=== PATIENT | male | born 1995 | race Caucasian/White ===

== ENCOUNTER 2018-07-06 16:40 | Emergency (ER) | payer OTHER, BC ==
[2018-07-06] MEDS: IBUPROFEN 800 MG TAB PO (19:11)
[2018-07-06] MEDS: BENZONATATE 100 MG CAP PO (19:11)
== END 2018-07-06 19:26 | disposition home or self-care (01) ==
LOC: M ED 16:40
DX: J18.1 Lobar pneumonia, unspecified organism (principal); J06.9 Acute upper respiratory infection, unspecified; J45.909 Unspecified asthma, uncomplicated; Z72.0 Tobacco use; Z91.010 Allergy to peanuts
CPT/HCPCS: 71046

== ENCOUNTER 2018-11-16 08:18 | Emergency (ER) | payer OTHER ==
[~2018-11-16] VITALS: Ht 193 cm; Wt 120.5 kg
[~2018-11-16 08:18] MED LIST: ALBU17IN2 INH; TESS100C PO; VENTAER INH; ZITHTAB PO
[2018-11-16] MEDS ORDERED: CYCL10TA PO (08:49)
[2018-11-16] MEDS ORDERED: NAPR-50 PO (08:49)
[2018-11-16 09:02] VITALS: BP 122/84
== END 2018-11-16 09:06 | disposition home or self-care (01) ==
LOC: M ED 08:18
DX: M62.830 Muscle spasm of back (principal); Z87.891 Personal history of nicotine dependence; Z91.010 Allergy to peanuts

== ENCOUNTER 2019-06-08 17:35 | Emergency (ER) | payer OTHER, SELFPAY ==
[~2019-06-08] VITALS: Ht 193 cm; Wt 135.0 kg
[~2019-06-08 17:35] MED LIST changes: -ALBU17IN2 INH; +CYCL10TA PO; +NAPR-837 PO; +PROV108A INH
[2019-06-08 19:16] LABS: BASO % 0.5 % (0.0-1.0); EOS # 0.2 10^3/uL (0.0-0.5); EOS % 2.9 % (0.0-3.0); HEMATOCRIT 41.5 % (42.0-52.0); HEMOGLOBIN 14.9 g/dl (13.5-17.5); LYMPH # 1.7 10^3/uL (1.5-5.0); LYMPH % 22.5 % (24.0-44.0); MEAN CORPUSCULAR HGB CONC 35.9 g/dl (32.0-36.5); MEAN CORPUSCULAR VOLUME 83.5 fl (80.0-96.0); MONO # 0.4 10^3/uL (0.0-0.8); MONO % 5.5 % (0.0-5.0); NEUTROPHILS # 5.2 10^3/uL (1.5-8.5); NEUTROPHILS % 68.2 % (36.0-66.0); PLATELET COUNT, AUTOMATED 366 10^3/uL (150-450); RED BLOOD COUNT 4.97 10^6/uL (4.30-6.10); WHITE BLOOD COUNT 7.7 10^3/uL (4.0-10.0)
[2019-06-08 19:26] LABS: ALBUMIN 4.4 GM/DL (3.2-5.2); ALT/SGPT 77 U/L (12-78); BILIRUBIN,DIRECT 0.3 MG/DL (0.0-0.2); BILIRUBIN,TOTAL 1.5 MG/DL (0.2-1.0); BLOOD UREA NITROGEN 16 MG/DL (7-18); CALCIUM LEVEL 9.4 MG/DL (8.5-10.1); CARBON DIOXIDE LEVEL 24 MEQ/L (21-32); CHLORIDE LEVEL 107 MEQ/L (98-107); CREATININE FOR GFR 1.05 MG/DL (0.70-1.30); GLOMERULAR FILTRATION RATE > 60.0 (>60); GLUCOSE, FASTING 86 MG/DL (70-100); LIPASE 56 U/L (73-393); SODIUM LEVEL 139 MEQ/L (136-145); TOTAL PROTEIN 7.7 GM/DL (6.4-8.2)
[2019-06-08] MEDS ORDERED: IBUPROFEN 600 MG TAB PO ONE (20:00)
--- NOTE | 2019-06-08 21:13 | REPVR ---
EXAM: US Pelvis Limited, Male EXAM DATE/TIME: 06/08/2019 9:03 PM CLINICAL HISTORY: 23 years old, male; Hip pain; Right hip; Additional info: R lump in inguinal area, tender, pain TECHNIQUE: Imaging protocol: Real-time pelvic ultrasound with image documentation. COMPARISON: No relevant prior studies available. FINDINGS: Soft tissues: No evidence of hernia. Lymph nodes: Examination of the right inguinal region demonstrates prominent lymph nodes corresponding to the palpable abnormality measuring 2.6 x 1.1 x 1 cm and 1.7 x 1.1 x 1.5 cm. Both demonstrate an oval shape with fatty nazia consistent with benignity. IMPRESSION: Benign appearing prominent inguinal lymph nodes likely postinflammatory. Otherwise unremarkable. Electronically signed by: Josesito Jimenez On 06/08/2019 21:13:30 PM
[2019-06-08 21:20] VITALS: BP 132/82
== END 2019-06-08 21:32 | disposition home or self-care (01) ==
LOC: M ED 17:35
DX: R59.0 Localized enlarged lymph nodes (principal); Z91.010 Allergy to peanuts

== ENCOUNTER 2020-03-15 15:54 | Emergency (ER) | payer OTHER, SELFPAY ==
[~2020-03-15] VITALS: Ht 193 cm; Wt 137.9 kg
[~2020-03-15 15:54] MED LIST changes: +CYCL-707 PO; -CYCL10TA PO
[2020-03-15 17:30] VITALS: BP 140/80
== END 2020-03-15 17:50 | disposition home or self-care (01) ==
LOC: M ED 15:54
DX: F43.0 Acute stress reaction (principal); Z91.010 Allergy to peanuts

== ENCOUNTER → 2020-03-31 | Outpatient (REF) | payer OTHER, MEDICAID ==
[2020-03-31 19:19] LABS: BASO % 0.5 % (0.0-1.0); EOS # 0.2 10^3/uL (0.0-0.5); EOS % 3.4 % (0.0-3.0); HEMOGLOBIN 13.5 g/dl (13.5-17.5); LYMPH # 1.7 10^3/uL (1.5-5.0); LYMPH % 29.3 % (24.0-44.0); MEAN CORPUSCULAR HEMOGLOBIN 29.7 pg (27.0-33.0); MEAN CORPUSCULAR HGB CONC 34.6 g/dl (32.0-36.5); MEAN CORPUSCULAR VOLUME 85.7 fl (80.0-96.0); MONO # 0.3 10^3/uL (0.0-0.8); MONO % 5.7 % (0.0-5.0); NEUTROPHILS # 3.5 10^3/uL (1.5-8.5); NEUTROPHILS % 60.2 % (36.0-66.0); PLATELET COUNT, AUTOMATED 391 10^3/uL (150-450); RED BLOOD COUNT 4.55 10^6/uL (4.30-6.10); WHITE BLOOD COUNT 5.8 10^3/uL (4.0-10.0)
[2020-03-31 19:31] LABS: ALT/SGPT 80 U/L (12-78); BILIRUBIN,TOTAL 0.9 MG/DL (0.2-1.0); BLOOD UREA NITROGEN 11 MG/DL (7-18); CALCIUM LEVEL 9.3 MG/DL (8.5-10.1); CARBON DIOXIDE LEVEL 24 MEQ/L (21-32); CHLORIDE LEVEL 107 MEQ/L (98-107); CHOLESTEROL LEVEL 178 MG/DL (<200); CREATININE FOR GFR 1.24 MG/DL (0.70-1.30); FREE T4 1.02 NG/DL (0.76-1.46); GLOMERULAR FILTRATION RATE > 60.0 (>60); GLUCOSE, FASTING 97 MG/DL (70-100); HDL CHOLESTEROL 25 MG/DL (>40); LDL CHOLESTEROL 121 MG/DL (<100); NON-HDL-C 153 MG/DL; POTASSIUM SERUM 3.9 MEQ/L (3.5-5.1); SODIUM LEVEL 138 MEQ/L (136-145); TOTAL 25(OH) VITAMIN D 21.3 NG/ML (30.0-100.0); TOTAL PROTEIN 7.6 GM/DL (6.4-8.2); TRIGLYCERIDES LEVEL 162 MG/DL (<150)
[2020-03-31 19:33] LABS: HEMOGLOBIN A1c 4.5 %
== END ==
LOC: M LAB REF 16:51
PROVIDERS: ATTEND Nurse Practitioner Family
DX: G47.00 Insomnia, unspecified (principal); Z13.9 Encounter for screening, unspecified; F41.8 Other specified anxiety disorders; J45.909 Unspecified asthma, uncomplicated

== ENCOUNTER 2020-05-15 10:47 | Emergency (ER) | payer OTHER, MEDICAID | END 2020-05-15 14:24 | disposition home or self-care (01) | LOC: M ED 10:47 | DX: Z11.59 Encounter for screening for other viral diseases (principal); J45.909 Unspecified asthma, uncomplicated ==

== ENCOUNTER 2020-07-16 10:34 | Emergency (ER) | payer MEDICAID, OTHER ==
[~2020-07-16] VITALS: Ht 193 cm; Wt 139.3 kg
[2020-07-16] MEDS ORDERED: HYDR50TA70 (10:43)
[2020-07-16] MEDS ORDERED: IBUPROFEN 800 MG TAB PO ONE (11:30)
[2020-07-16] MEDS ORDERED: CYCLOBENZAPRINE 10MG TABLET PO ONE (11:30)
[2020-07-16] MEDS ORDERED: LIDOCAINE 5% (LIDODERM) PATCH TD ONE (11:30)
--- NOTE | 2020-07-16 12:29 | REPVR ---
PROCEDURE INFORMATION: Exam: XR Lumbosacral Spine, 2 or 3 Views Exam date and time: 07/16/2020 11:30 AM Age: 24 years old Clinical indication: Low back pain TECHNIQUE: Imaging protocol: XR of the lumbosacral spine, 2 or 3 views. COMPARISON: No relevant prior studies available. FINDINGS: Vertebrae: Vertebral body heights are intact. Alignment is maintained. The pedicles appear intact. No acute fracture is identified. The disc spaces appear grossly unremarkable. Soft tissues: Grossly unremarkable. IMPRESSION: No significant abnormality. Electronically signed by: Pantera Berg On 07/16/2020 12:28:53 PM
--- NOTE | 2020-07-16 12:29 | REPVR ---
PROCEDURE INFORMATION: Exam: XR Thoracic Spine, 3 Views Exam date and time: 07/16/2020 11:30 AM Age: 24 years old Clinical indication: Pain in thoracic spine; Additional info: Back pain TECHNIQUE: Imaging protocol: XR of the thoracic spine, 3 views. COMPARISON: No relevant prior studies available. FINDINGS: Vertebrae: Vertebral body heights are intact. Alignment is maintained. The pedicles appear intact. No acute fracture is identified. The disc spaces appear grossly unremarkable. Soft tissues: Grossly unremarkable. IMPRESSION: No significant abnormality. Electronically signed by: Pantera Berg On 07/16/2020 12:29:24 PM
[2020-07-16] MEDS ORDERED: LIDO5DIS41 TD (12:43)
[2020-07-16] MEDS ORDERED: CYCL-707 PO (12:43)
[2020-07-16 12:54] VITALS: BP 140/86
[2020-07-16] MEDS ORDERED: **NOTE PATIENT COMMENT** MISC XX SCH (21:00)
== END 2020-07-16 13:00 | disposition home or self-care (01) ==
LOC: M ED 10:34
DX: S39.012A Strain of muscle, fascia and tendon of lower back, initial encounter (principal); X50.0XXA Overexertion from strenuous movement or load, initial encounter; Y92.89 Other specified places as the place of occurrence of the external cause; Y93.9 Activity, unspecified; Y99.0 Civilian activity done for income or pay; F41.9 Anxiety disorder, unspecified; F32.9 Major depressive disorder, single episode, unspecified; F17.200 Nicotine dependence, unspecified, uncomplicated; Z91.010 Allergy to peanuts

== ENCOUNTER 2020-10-29 12:22 | Emergency (ER) | payer OTHER ==
[~2020-10-29] VITALS: Ht 193 cm; Wt 143.0 kg
[~2020-10-29 12:22] MED LIST changes: +HYDR50TA70; +LIDO5DIS41 TD
[2020-10-29] MEDS ORDERED: ACETAMINOPHEN 325 MG TAB PO ONE (13:30)
[2020-10-29] MEDS ORDERED: AMOX875T PO (13:41)
[2020-10-29 13:54] VITALS: BP 141/87
== END 2020-10-29 13:55 | disposition home or self-care (01) ==
LOC: M ED 12:22
DX: K04.7 Periapical abscess without sinus (principal); K02.9 Dental caries, unspecified; K05.00 Acute gingivitis, plaque induced; Z91.010 Allergy to peanuts

== ENCOUNTER 2021-06-02 22:38 | Emergency (ER) | payer OTHER ==
[~2021-06-02] VITALS: Ht 193 cm; Wt 140.3 kg
[~2021-06-02 22:38] MED LIST changes: +AMOX875T PO
[2021-06-03] MEDS ORDERED: BENZOCAINE 20% GEL 9GM TUBE (ANBESOL MAX STRENGTH) TOP ONE (00:25)
[2021-06-03] MEDS ORDERED: LIDOCAINE 2% W/ EPINEPHRINE 1.7 ML DENTAL INJ SM ONE (00:25)
[2021-06-03 01:21] VITALS: BP 135/86
== END 2021-06-03 01:23 | disposition home or self-care (01) ==
LOC: M ED 22:38
DX: K08.89 Other specified disorders of teeth and supporting structures (principal); J45.909 Unspecified asthma, uncomplicated; F41.9 Anxiety disorder, unspecified; Z91.010 Allergy to peanuts

== ENCOUNTER → 2022-11-05 | Outpatient (REF) | payer OTHER ==
[~2022-11-05] MED LIST changes: +ALBU6.7H6 INH; -PROV108A INH
[2022-11-05 13:54] LABS: BASO % 0.5 % (0.0-1.0); EOS # 0.4 10^3/uL (0.0-0.5); EOS % 5.8 % (0.0-3.0); HEMATOCRIT 41.9 % (42.0-52.0); HEMOGLOBIN 14.1 g/dl (13.5-17.5); LYMPH # 1.7 10^3/uL (1.5-5.0); LYMPH % 25.5 % (24.0-44.0); MEAN CORPUSCULAR HEMOGLOBIN 29.6 pg (27.0-33.0); MEAN CORPUSCULAR HGB CONC 33.7 g/dl (32.0-36.5); MEAN CORPUSCULAR VOLUME 87.8 fl (80.0-96.0); MONO # 0.4 10^3/uL (0.0-0.8); MONO % 6.2 % (2.0-8.0); NEUTROPHILS % 61.2 % (36.0-66.0); PLATELET COUNT, AUTOMATED 329 10^3/uL (150-450); RED BLOOD COUNT 4.77 10^6/uL (4.30-6.10); WHITE BLOOD COUNT 6.6 10^3/uL (4.0-10.0)
[2022-11-05 13:57] LABS: ALBUMIN 4.2 G/DL (3.2-5.2); ALKALINE PHOSPHATASE 65 U/L (46-116); ALT/SGPT 102 U/L (7.0-40); AST/SGOT 49 U/L (<34); BILIRUBIN,TOTAL 0.9 MG/DL (0.3-1.2); BLOOD UREA NITROGEN 8 MG/DL (9-23); CALCIUM LEVEL 9.2 MG/DL (8.5-10.1); CARBON DIOXIDE LEVEL 25 MMOL/L (20-31); CHLORIDE LEVEL 104 MMOL/L (98-107); CHOLESTEROL LEVEL 162 MG/DL (<200); CHOLESTEROL RISK RATIO 6.23 (<5); CREATININE FOR GFR 1.02 MG/DL (0.70-1.30); FREE T4 0.97 NG/DL (0.89-1.76); GLOMERULAR FILTRATION RATE > 60.0 (>60); GLUCOSE, FASTING 96 MG/DL (60-100); LDL CHOLESTEROL 91.6 MG/DL (<100); NON-HDL-C 136 MG/DL; POTASSIUM SERUM 4.2 MMOL/L (3.5-5.1); SODIUM LEVEL 138 MMOL/L (136-145); THYROID STIMULATING HORMONE 4.809 uIU/ML (0.55-4.78); TOTAL 25(OH) VITAMIN D 8.8 NG/ML (20.0-100.0); TOTAL PROTEIN 7.4 G/DL (5.7-8.2); TRIGLYCERIDES LEVEL 222 MG/DL (<150)
[2022-11-05 17:14] LABS: HEMOGLOBIN A1c 4.2 % (4.0-6.0)
== END ==
LOC: M LAB REF 12:13
PROVIDERS: ATTEND Nurse Practitioner Family
DX: Z13.228 Encounter for screening for other metabolic disorders (principal)

== ENCOUNTER → 2023-01-08 | Outpatient (CLI) | payer OTHER ==
[~2023-01-08] MED LIST changes: +CLON0.5T2; +CYCL5TAB; +DICL75TA PO; +ERGO500029; +IBUP80TA; +METH-1165 PO; +VITA200032
== END ==
LOC: M SOG 08:02
PROVIDERS: ATTEND Orthopaedic Surgery
DX: M54.50 Low back pain, unspecified (principal)

== ENCOUNTER 2023-01-10 07:00 | Emergency (ER) | payer OTHER ==
[~2023-01-10] VITALS: Ht 193 cm; Wt 147.4 kg
[~2023-01-10 07:00] MED LIST changes: -CLON0.5T2; -CYCL5TAB; -DICL75TA PO; -ERGO500029; -IBUP80TA; -METH-1165 PO; -VITA200032
[2023-01-10 07:01] VITALS: BP 154/95
[2023-01-10] MEDS ORDERED: IBUP80TA (07:09)
[2023-01-10] MEDS ORDERED: CYCL5TAB (07:09)
[2023-01-10] MEDS ORDERED: VITA200032 (07:09)
[2023-01-10] MEDS ORDERED: ERGO500029 (07:09)
[2023-01-10] MEDS ORDERED: CLON0.5T2 (07:09)
[2023-01-10] MEDS ORDERED: KETOROLAC 30 MG/ML 1ML VIAL IV ONE (08:05)
[2023-01-10] MEDS ORDERED: diazePAM 10MG/2ML SYRINGE IV ONE (08:05)
[2023-01-10 08:55] LABS: BLOOD UREA NITROGEN 11 MG/DL (9-23); CALCIUM LEVEL 8.9 MG/DL (8.5-10.1); CARBON DIOXIDE LEVEL 25 MMOL/L (20-31); CHLORIDE LEVEL 98 MMOL/L (98-107); CREATININE FOR GFR 1.15 MG/DL (0.70-1.30); GLOMERULAR FILTRATION RATE > 60.0 (>60); GLUCOSE, FASTING 123 MG/DL (60-100); SODIUM LEVEL 133 MMOL/L (136-145)
[2023-01-10] MEDS ORDERED: METH-1165 PO (09:39)
[2023-01-10] MEDS ORDERED: DICL75TA PO (09:39)
== END 2023-01-10 09:51 | disposition home or self-care (01) ==
LOC: M ED 07:00
DX: M54.6 Pain in thoracic spine (principal); M62.830 Muscle spasm of back; F41.9 Anxiety disorder, unspecified; F32.9 Major depressive disorder, single episode, unspecified; Z91.010 Allergy to peanuts
CPT/HCPCS: 80048; 96374; 96375; 99283; J1885; J3360

== ENCOUNTER → 2023-01-20 | Outpatient (CLI) | payer OTHER ==
[~2023-01-20] MED LIST changes: +CLON0.5T2; +CYCL5TAB; +DICL75TA PO; +ERGO500029; +IBUP80TA; +METH-1165 PO; +VITA200032
== END ==
LOC: M PLAIMG 07:03
PROVIDERS: ATTEND Orthopaedic Surgery
DX: S39.012A Strain of muscle, fascia and tendon of lower back, initial encounter (principal); M47.816 Spondylosis without myelopathy or radiculopathy, lumbar region; X58.XXXA Exposure to other specified factors, initial encounter; Y92.9 Unspecified place or not applicable; Y93.9 Activity, unspecified; Y99.9 Unspecified external cause status

== ENCOUNTER 2023-02-11 10:47 | Emergency (ER) | payer OTHER ==
[~2023-02-11] VITALS: Ht 193 cm; Wt 148.8 kg
[2023-02-11 11:55] LABS: BASO % 0.4 % (0.0-1.0); EOS # 0.4 10^3/uL (0.0-0.5); EOS % 4.3 % (0.0-3.0); HEMOGLOBIN 14.3 g/dl (13.5-17.5); MEAN CORPUSCULAR HGB CONC 35.8 g/dl (32.0-36.5); MEAN CORPUSCULAR VOLUME 86.6 fl (80.0-96.0); MONO # 0.4 10^3/uL (0.0-0.8); MONO % 5.1 % (2.0-8.0); NEUTROPHILS # 5.6 10^3/uL (1.5-8.5); NEUTROPHILS % 65.6 % (36.0-66.0); PLATELET COUNT, AUTOMATED 353 10^3/uL (150-450); RED BLOOD COUNT 4.62 10^6/uL (4.30-6.10); WHITE BLOOD COUNT 8.5 10^3/uL (4.0-10.0)
[2023-02-11 12:28] LABS: BLOOD UREA NITROGEN 11 MG/DL (9-23); CALCIUM LEVEL 9.5 MG/DL (8.5-10.1); CARBON DIOXIDE LEVEL 26 MMOL/L (20-31); CHLORIDE LEVEL 103 MMOL/L (98-107); CK-MB VALUE MASS < 1.0 NG/ML (<3.6); CPK CREATINE PHOSPHOKINASE 112 U/L (46-171); CREATININE FOR GFR 0.97 MG/DL (0.70-1.30); GLOMERULAR FILTRATION RATE > 60.0 (>60); GLUCOSE, FASTING 94 MG/DL (60-100); MB/CK RELATIVE INDEX 0.89 (< OR =4); SODIUM LEVEL 135 MMOL/L (136-145)
[2023-02-11] MEDS ORDERED: NS 1,000 ML IV ONE (13:10)
[2023-02-11] MEDS ORDERED: MORPHINE 4 MG/ML 1ML VIAL IV ONE (13:10)
[2023-02-11] MEDS ORDERED: ONDANSETRON 4MG 2ML VIAL IV ONE (13:10)
[2023-02-11] MEDS ORDERED: ISOVUE-370 76% 100ML VIAL As Ordered ONE (13:40)
[2023-02-11 14:29] LABS: CK-MB VALUE MASS < 1.0 NG/ML (<3.6)
[2023-02-11 14:31] LABS: CPK CREATINE PHOSPHOKINASE 107 U/L (46-171); MB/CK RELATIVE INDEX 0.93 (< OR =4)
[2023-02-11] MEDS ORDERED: KETOROLAC 60MG 2ML VIAL IM ONE (15:30)
[2023-02-11 15:53] VITALS: BP 145/78
== END 2023-02-11 15:57 | disposition home or self-care (01) ==
LOC: M ED 10:47
DX: R07.89 Other chest pain (principal); M79.622 Pain in left upper arm; J45.909 Unspecified asthma, uncomplicated; Z82.49 Family history of ischemic heart disease and other diseases of the circulatory system; K76.0 Fatty (change of) liver, not elsewhere classified; Z91.010 Allergy to peanuts
CPT/HCPCS: 71275; 80048; 82550; 82553; 85025; 93005; 93041; 93971; 94760; 96361; 96372; 96374; 96375; 99285; J1885; J2405; Q9967

== ENCOUNTER 2023-04-21 06:58 | Emergency (ER) | payer OTHER ==
[~2023-04-21] VITALS: Ht 193 cm; Wt 145.3 kg
[2023-04-21 06:59] VITALS: BP 141/89; TEMP 97; O2SAT 97
[2023-04-21] MEDS ORDERED: dayquil (07:07)
[2023-04-21] MEDS ORDERED: BUSP5TA (07:07)
[2023-04-21] MEDS ORDERED: TRAZ-252 (07:07)
[2023-04-21] MEDS ORDERED: BENZ200C70 PO (08:39)
== END 2023-04-21 08:50 | disposition home or self-care (01) ==
LOC: M ED 06:58
DX: J06.9 Acute upper respiratory infection, unspecified (principal); R05.9 Cough, unspecified; F41.9 Anxiety disorder, unspecified; Z82.49 Family history of ischemic heart disease and other diseases of the circulatory system; Z83.3 Family history of diabetes mellitus; F17.290 Nicotine dependence, other tobacco product, uncomplicated

== ENCOUNTER → 2023-05-07 | Outpatient (REF) | payer OTHER ==
[~2023-05-07] MED LIST changes: +BENZ200C70 PO; +BUSP5TA; +TRAZ-252; +dayquil
[2023-05-07 15:41] LABS: ALBUMIN 4.3 G/DL (3.2-5.2); ALKALINE PHOSPHATASE 64 U/L (46-116); ALT/SGPT 97 U/L (7.0-40); AST/SGOT 39 U/L (<34); BILIRUBIN,TOTAL 0.9 MG/DL (0.3-1.2); BLOOD UREA NITROGEN 8 MG/DL (9-23); CALCIUM LEVEL 9.3 MG/DL (8.5-10.1); CARBON DIOXIDE LEVEL 28 MMOL/L (20-31); CHLORIDE LEVEL 101 MMOL/L (98-107); CHOLESTEROL LEVEL 186 MG/DL (<200); CHOLESTEROL RISK RATIO 6.41 (<5); CREATININE FOR GFR 1.07 MG/DL (0.70-1.30); GLOMERULAR FILTRATION RATE > 60.0 (>60); GLUCOSE, FASTING 108 MG/DL (60-100); POTASSIUM SERUM 3.5 MMOL/L (3.5-5.1); SODIUM LEVEL 139 MMOL/L (136-145); THYROID STIMULATING HORMONE 8.084 uIU/ML (0.55-4.78); TOTAL PROTEIN 7.4 G/DL (5.7-8.2); TRIGLYCERIDES LEVEL 225 MG/DL (<150)
== END ==
LOC: M LAB REF 11:57
PROVIDERS: ATTEND Nurse Practitioner Family
DX: R79.89 Other specified abnormal findings of blood chemistry (principal); R74.01 Elevation of levels of liver transaminase levels

== ENCOUNTER → 2023-12-04 | Outpatient (REF) | payer OTHER ==
[2023-12-04 18:18] LABS: THYROID STIMULATING HORMONE 4.098 uIU/ML (0.55-4.78)
[2023-12-04 18:19] LABS: FREE T4 0.98 NG/DL (0.89-1.76)
== END ==
LOC: M LAB REF 16:34
PROVIDERS: ATTEND Nurse Practitioner Family
DX: R79.89 Other specified abnormal findings of blood chemistry (principal)

== ENCOUNTER → 2024-01-19 | Outpatient (CLI) | payer OTHER | LOC: M RAD 15:49 | PROVIDERS: ATTEND Physician Assistant | DX: M79.662 Pain in left lower leg (principal) ==

== ENCOUNTER → 2025-05-19 | Outpatient (REF) ==
[~2025-05-19] MED LIST changes: -CYCL5TAB; +CYCL5TAB4; +LIDO1ADH93 TD; -LIDO5DIS41 TD
== END ==
LOC: M LAB 10:52
PROVIDERS: ATTEND Family Medicine
DX: Z02.89 Encounter for other administrative examinations (principal)

== ENCOUNTER → 2025-09-09 | Outpatient (REF) ==
[2025-09-09 09:09] LABS: SOFIA COVID ANTIGEN NEGATIVE (NEGATIVE)
== END ==
LOC: M EMP 08:28
PROVIDERS: ATTEND Family Medicine
DX: Z01.89 Encounter for other specified special examinations (principal)

== ENCOUNTER → 2025-09-30 | Outpatient (REF) | LOC: M EMP 10:38 | PROVIDERS: ATTEND Family Medicine | DX: Z01.89 Encounter for other specified special examinations (principal) ==